=== PATIENT | female | born 1985 | race Caucasian/White ===

== ENCOUNTER 2019-01-27 20:15 | Inpatient (IN) | payer MEDICAID ==
[~2019-01-27] VITALS: Ht 162.6 cm; Wt 51.7 kg
[2019-01-27] MEDS ORDERED: HYDROcodone/Acetamin 5/325 tab ORAL ONE (20:45)
[2019-01-27] MEDS ORDERED: Ketorolac 60mg Inj IM ONE (20:45)
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
[2019-01-27 20:57] VITALS: BP 130/80
[2019-01-27] MEDS ORDERED: Morphine Sulfate 4mg/ml Inj (IV USE ONLY) IVP ONE (21:00)
--- NOTE | 2019-01-27 21:00 | NUR ---
ED Nurse Note: Pt went to X ray.
--- NOTE | 2019-01-27 21:15 | NUR ---
ED Nurse Note: Pt refused to provide urine sample, Blood sample sent to lab.
--- NOTE | 2019-01-27 21:30 | NUR ---
ED Nurse Note: PT refused Morphine and Zofran, Pt states Morphine made her itchness and allergy recation. ERMD aware.
[2019-01-27 21:35] LABS: BASOPHILS % (AUTO) 1.2 % (0.0-2.0); EOSINOPHILS % (AUTO) 5.2 % (0.0-3.0); HEMOGLOBIN 14.9 G/DL (12.0-16.0); MEAN CORPUSCULAR VOLUME 95 FL (80-99); MONOCYTES % (AUTO) 9.4 % (1.0-10.0); NEUTROPHILS % (AUTO) 50.2 % (45.0-75.0); PLATELET COUNT 397 K/UL (150-450); RED BLOOD COUNT 4.82 M/UL (4.20-5.40); RED CELL DISTRIBUTION WIDTH 11.9 % (11.6-14.8); WHITE BLOOD COUNT 8.3 K/UL (4.8-10.8)
[2019-01-27 21:47] LABS: ANION GAP 8 mmol/L (5-15); BLOOD UREA NITROGEN 13 mg/dL (7-18); CARBON DIOXIDE 34 MMOL/L (21-32); CHLORIDE 98 MMOL/L (98-107); CREATININE 0.9 MG/DL (0.55-1.30); POTASSIUM 4.2 MMOL/L (3.5-5.1); SODIUM 140 MMOL/L (136-145)
[2019-01-27 21:52] LABS: ALANINE AMINOTRANSFERASE 41 U/L (12-78); ALBUMIN 4.5 G/DL (3.4-5.0); ALBUMIN/GLOBULIN RATIO 1.1 (1.0-2.7); ALKALINE PHOSPHATASE 124 U/L (46-116); ASPARTATE AMINO TRANSFERASE 49 U/L (15-37); BILIRUBIN,TOTAL 0.2 MG/DL (0.2-1.0)
[2019-01-27 22:00] VITALS: BP 132/74
--- NOTE | 2019-01-27 23:00 | NUR ---
ED Nurse Note: Urine sample sent to lab.
[2019-01-27] MEDS ORDERED: HYDROmorphone 1mg/ml Carpuject IVP ONE (23:30)
[2019-01-28 00:20] VITALS: BP 125/77
--- NOTE | 2019-01-28 00:25 | NUR ---
ED Nurse Note: Report given to CHARLES Gonzalez. Pt is AO x 4times, VSS, on room air no distress. All belongings given to floor.
[2019-01-28 00:35] VITALS: BP 122/89
--- NOTE | 2019-01-28 00:35 | NUR ---
NURSE NOTES: Patient came from ER via gurney. A&OX4. IV site patent and intact. Skin intact. Belongings are checked. Bed in lowest position. Call light within reach. Will continue to monitor.
[2019-01-28] MEDS: HYDROmorphone 1mg/ml Carpuject IVP PRN ×5 (03:03→21:42)
[2019-01-28 04:00] VITALS: BP 126/95
--- NOTE | 2019-01-28 07:30 | NUR ---
HAND-OFF: Report given to Amber Nails RN.
[2019-01-28 08:00] VITALS: BP 113/81
--- NOTE | 2019-01-28 08:43 | Consultation ---
History of Present Illness General Date patient seen: Jan 28, 2019 Present Illness Allergies: Coded Allergies: MORPHINE (Verified Allergy, Unknown, 01/27/19) Medication History No Active Prescriptions or Reported Meds Patient History Healthcare decision maker Resuscitation status Full Code Advanced Directive on File Physical Exam Last 24 Hour Vital Signs Date Time Temp Pulse Resp B/P (MAP) Pulse Ox O2 Delivery O2 Flow Rate FiO2 01/28/19 08:25 98.6 01/28/19 04:00 98.6 98 20 126/95 (105) 97 01/28/19 03:19 Room Air 01/28/19 00:35 98.7 88 20 122/89 (100) 97 01/28/19 00:25 98.3 81 20 125/77 100 Room Air 84 01/28/19 00:20 98.3 84 20 125/77 100 Room Air 01/27/19 22:00 98.1 81 19 132/74 99 Room Air 01/27/19 20:57 98.2 78 20 130/80 99 Room Air 01/27/19 20:23 98.4 95 22 128/76 (93) 99 Room Air Laboratory Tests Test 01/27/19 21:05 White Blood Count 8.3 K/UL (4.8-10.8) Red Blood Count 4.82 M/UL (4.20-5.40) Hemoglobin 14.9 G/DL (12.0-16.0) Hematocrit 46.0 % (37.0-47.0) Mean Corpuscular Volume 95 FL (80-99) Mean Corpuscular Hemoglobin 31.0 PG (27.0-31.0) Mean Corpuscular Hemoglobin Concent 32.5 G/DL (32.0-36.0) Red Cell Distribution Width 11.9 % (11.6-14.8) Platelet Count 397 K/UL (150-450) Mean Platelet Volume 5.5 FL (6.5-10.1) L Neutrophils (%) (Auto) 50.2 % (45.0-75.0) Lymphocytes (%) (Auto) 34.0 % (20.0-45.0) Monocytes (%) (Auto) 9.4 % (1.0-10.0) Eosinophils (%) (Auto) 5.2 % (0.0-3.0) H Basophils (%) (Auto) 1.2 % (0.0-2.0) Sodium Level 140 MMOL/L (136-145) Potassium Level 4.2 MMOL/L (3.5-5.1) Chloride Level 98 MMOL/L (98-107) Carbon Dioxide Level 34 MMOL/L (21-32) H Anion Gap 8 mmol/L (5-15) Blood Urea Nitrogen 13 mg/dL (7-18) Creatinine 0.9 MG/DL (0.55-1.30) Estimat Glomerular Filtration Rate > 60 mL/min (>60) Glucose Level 73 MG/DL (74-106) L Calcium Level 10.0 MG/DL (8.5-10.1) Total Bilirubin 0.2 MG/DL (0.2-1.0) Aspartate Amino Transf (AST/SGOT) 49 U/L (15-37) H Alanine Aminotransferase (ALT/SGPT) 41 U/L (12-78) Alkaline Phosphatase 124 U/L (46-116) H Total Protein 8.5 G/DL (6.4-8.2) H Albumin 4.5 G/DL (3.4-5.0) Globulin 4.0 g/dL Albumin/Globulin Ratio 1.1 (1.0-2.7) Salicylates Level 3.7 ug/mL (2.8-20) Acetaminophen Level < 2 MCG/ML (10-30) L Serum Alcohol < 3 mg/dL Microbiology Date/Time Source Procedure Growth Status 01/28/19 03:00 Rectum Received Height (Feet): 5 Height (Inches): 4.00 Weight (Pounds): 114 Medications Current Medications Medications (Trade) Dose Ordered Sig/Robin Route PRN Reason Start Time Stop Time Status Last Admin Dose Admin Acetaminophen (Tylenol) 650 mg Q4H PRN ORAL Mild Pain/Temp > 100.5 01/28/19 01:15 02/27/19 01:14 Hydromorphone HCl (Dilaudid) 1 mg Q4H PRN IVP For Pain 01/28/19 01:15 02/04/19 01:14 01/28/19 07:55 Assessment/Plan Assessment/Plan: (1) Thoracic sprain (2) Left knee sprain (3) Right foot sprain (4) H/o Cervical fusion seen dictated Berry Oneal Jan 28, 2019 08:43
--- NOTE | 2019-01-28 09:06 | NUR ---
NURSE NOTES: pt in bed with no sob nor in any form of distress noted. prn pain med given as ordered. still c/o sternal pain. await for Dr. call to see pt. will continue to monitor.
--- NOTE | 2019-01-28 10:52 | Diagnostic Imaging Report ---
Indication: Chest pain Technique: 2 views of the chest Comparison: None Findings: Lungs and pleural spaces are clear. There is cervical spine fusion hardware Impression: No acute process
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
--- NOTE | 2019-01-28 15:01 | NUR ---
*-* INSURANCE *-* ALL CLINICALS HAVE BEEN FAXED TO: KIRSTEN SWANSON (PROFESSIONAL) P: [phone] F: [phone] (FAX CLINICALS) AUTH# [id number]
[2019-01-28 16:00] VITALS: BP 107/77
--- NOTE | 2019-01-28 16:37 | NUR ---
NURSE NOTES: pt refused STAT troponin lab. Explained risk and benefit, pt still refused. pt stated " I don't want any unnecessary test" pt still waiting for clearance from Dr. ellsworth. left x3. no response so far. Private Duty Aide and CN made aware.
--- NOTE | 2019-01-28 16:58 | NUR ---
NURSE NOTES: Received call back from Dr. Anguiano. per Md, he will come and see the patient around 7pm [facility]. pt made aware and agreed to wait for Dr. Anguiano.
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
--- NOTE | 2019-01-28 19:19 | NUR ---
HAND-OFF: Report given to kain brownlee RN.
--- NOTE | 2019-01-28 19:45 | NUR ---
NURSE NOTES: Received patient from CHARLES Vasquez. Patient is resting in bed, awake and alert x4. 2 bed rails up , bed in lowest position with call light in reach. IV intact. Will continue to monitor.
[2019-01-28 20:00] VITALS: BP 107/68
--- NOTE | 2019-01-28 21:25 | Cardiology Progress Note ---
Assessment/Plan Assessment/Plan The patient is seen and examined, full consult note will be dictated. Objective Last 24 Hour Vital Signs Date Time Temp Pulse Resp B/P (MAP) Pulse Ox O2 Delivery O2 Flow Rate FiO2 01/28/19 18:05 98.3 01/28/19 16:00 98.3 92 20 107/77 (87) 97 01/28/19 09:00 Room Air 01/28/19 08:00 98.6 87 20 113/81 (92) 98 01/28/19 04:00 98.6 98 20 126/95 (105) 97 01/28/19 03:19 Room Air 01/28/19 00:35 98.7 88 20 122/89 (100) 97 01/28/19 00:25 98.3 81 20 125/77 100 Room Air 84 01/28/19 00:20 98.3 84 20 125/77 100 Room Air 01/27/19 22:00 98.1 81 19 132/74 99 Room Air Intake and Output 01/27/19 01/28/19 18:59 06:59 # Voids 3 Microbiology Date/Time Source Procedure Growth Status 01/28/19 03:00 Rectum Received Mani Anguiano MD Jan 28, 2019 21:25
--- NOTE | 2019-01-28 22:59 | NUR ---
NURSE NOTES: Patient discharged by taxi to home as ordered.
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
--- NOTE | 2019-01-29 16:45 | NUR ---
*-* INSURANCE *-* DISCHARGE SUMMARY BEEN FAXED TO: [employer] ([employer]) P: [phone] F: [phone] (FAX CLINICALS) AUTH# [id number]
== END 2019-01-28 22:20 | disposition home or self-care (01) | DRG 135 ==
LOC: EMR 20:53 → 4E 22:04 → EDBEDREQ 01-28 00:15
DX: S22.20XA Unspecified fracture of sternum, initial encounter for closed fracture (principal); F17.200 Nicotine dependence, unspecified, uncomplicated; S23.3XXA Sprain of ligaments of thoracic spine, initial encounter; V89.2XXA Person injured in unspecified motor-vehicle accident, traffic, initial encounter; S93.402A Sprain of unspecified ligament of left ankle, initial encounter; Z98.1 Arthrodesis status; S83.92XA Sprain of unspecified site of left knee, initial encounter; S93.601A Unspecified sprain of right foot, initial encounter; Z88.6 Allergy status to analgesic agent; F19.11 Other psychoactive substance abuse, in remission
CPT/HCPCS: 36415; 71046; 80053; 80329; 85025; 87081; 96372; 99285